=== PATIENT | male | born 1990 | race Caucasian/White ===

== ENCOUNTER 2019-10-16 05:05 | Emergency (ER) | payer OTHER, SELFPAY ==
[~2019-10-16 05:05] MED LIST: Fentanyl 100 MCG/2 ML VIAL ONE; Propofol 1,000 MG/100 ML VIAL IV ONE
[2019-10-16 05:27] LABS: Hemoglobin 13.7 g/dL (14.0-18.0); Mean Corpuscular HGB CONC 33.4 g/dL (32.0-36.0); Mean Corpuscular Hemoglobin 30.9 pg (27.0-31.0); Mean Corpuscular Volume 92.7 fL (78.0-98.0); RBC Distribution Width 11.6 % (11.5-14.5); Red Blood Cell (RBC) Count 4.42 mill/uL (4.70-6.10); White Blood Cell (WBC) Count 8.1 thou/uL (4.8-10.8)
[2019-10-16 05:39] LABS: INR-International Normal Ratio 2.2; Prothrombin Time 24.5 SEC (12.0-14.7)
[2019-10-16 05:40] LABS: PTT 100.4 SEC (22.9-36.1)
[2019-10-16 05:41] LABS: Band 2 % (5-11); Eosinophils 1 % (0-10); Lymphocytes 85 % (21-51); MDiff Complete? YES; Monocytes 1 % (0-10); Neutrophil 7 % (42-75); Platelet Count 96 thou/uL (130-400); Platelet Morphology Comment Appears Decreased; RBC Morphology Normal; Reactive Lymphocytes 4 % (0-10)
[2019-10-16 05:46] LABS: ALT (SGPT) 503 U/L (8-55); AST (SGOT) 365 U/L (5-34); Albumin 3.7 g/dL (3.5-5.0); Alkaline Phosphatase 117 U/L (40-110); Anion Gap 19 mmol/L (10-20); BUN (Urea Nitrogen) 11 mg/dL (8.9-20.6); Bilirubin, Total 0.2 mg/dL (0.2-1.2); Calc. Creatinine Clearance 0 mL/min (70-130); Calcium 8.4 mg/dL (7.8-10.44); Carbon Dioxide 17 mmol/L (22-29); Chloride 113 mmol/L (98-107); Estimated GFR-MDRD 63; Globulin 2.6 g/dL (2.4-3.5); Glucose 91 mg/dL (70-105); Potassium 3.9 mmol/L (3.5-5.1); Protein, Total 6.3 g/dL (6.0-8.3); Sodium 145 mmol/L (136-145)
[2019-10-16] MEDS ORDERED: EPINEPHrine 1 MG/10 ML Abboject SYRINGE ONE ×2 (09:40→09:41)
[2019-10-16] MEDS ORDERED: Calcium Chloride 1 GM/10 ML Abboject SYRINGE ONE (09:40)
[2019-10-16] MEDS ORDERED: Sodium Bicarb 50 MEQ/50 ML Abboject 8.4% SYRINGE ONE (09:40)
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
== END 2019-10-16 05:30 | disposition expired ==
LOC: ERS 05:05 → EDBD 05:05 → ERS 05:30
DX: I46.9 Cardiac arrest, cause unspecified (principal); V89.2XXA Person injured in unspecified motor-vehicle accident, traffic, initial encounter
CPT/HCPCS: 32551; 36415; 36430; 80053; 85025; 85610; 85730; 86850; 86900; 86901; 92950; G0390; J0171; J2704; J3010; P9016